=== PATIENT | female | born 1960 | race Caucasian/White ===

== ENCOUNTER 2017-02-08 15:33 | Emergency (ER) | payer OTHER ==
[2017-02-08 17:31] VITALS: BP 113/64
--- NOTE | 2017-02-08 18:21 | UC ---
Back Pain HPI - HPI Summary HPI Summary: Pt presents with c/o of low back pain that is chronic and has been exacerbated with a recent trip that caused her to "jar" her low back. She reports that the pain/numbness/heaviness radiates from right buttock to right knee. Denies saddle parasthesia right upper thigh, incontinence or worsening of condition from onset. - History of Current Complaint Chief Complaint: UCTrauma Stated Complaint: LEG HEAVINESS AND NUMBNESS Time Seen by Provider: 02/08/17 18:07 Hx Obtained From: Patient ?: No Onset/Duration: Gradual Onset, Lasting Days Timing: Intermittent, Lasting Minutes Severity Initially: Mild Severity Currently: Mild Back Pain: Is Discrete @ - right lower back, Radiates To - right upper thigh Character: Dull, Aching Alleviating: Rest, Position Associated Signs And Symptoms: Positive: Weakness - Risk Factors Cauda Equina Risk Factors: Negative - Allergies/Home Medications Allergies/Adverse Reactions: Allergies Allergy/AdvReac Type Severity Reaction Status Date / Time No Known Allergies Allergy Verified 02/08/17 17:11 Home Medications: Home Medications Aspirin [Aspirin Adult Low Strengt] 81 mg PO 02/08/17 [History] PMH/Surg Hx/FS Hx/Imm Hx Previously Healthy: Yes Endocrine History Of: Denies: Diabetes Cardiovascular History Of: Reports: Cardiac Disorders Denies: Hypertension GI/ History Of: Denies: Renal Disease Cancer History Of: Denies: Breast Cancer - Surgical History Surgical History: Yes Surgery Procedure, Year, and Place: right wrist - 2014, right knee ACL repair - 2013 - Family History Known Family History: Positive: Other - positive [facility] for myalgia - Social History Alcohol Use: Rare Substance Use Type: None Smoking Status (MU): Never Smoked Tobacco Review of Systems Constitutional: Negative Skin: Negative Eyes: Negative ENT: Negative Respiratory: Negative Cardiovascular: Negative Gastrointestinal: Negative Genitourinary: Negative Motor: Negative Neurovascular: Other - weakness right upper thigh Musculoskeletal: Myalgia Neurological: Negative Psychological: Negative All Other Systems Reviewed And Are Negative: Yes Physical Exam Triage Information Reviewed: Yes Appearance: Well-Appearing Vital Signs: Initial Vital Signs Temp 97.9 F 02/08/17 17:14 Pulse 67 02/08/17 17:14 Resp 18 02/08/17 17:14 BP 113/64 02/08/17 17:14 Pulse Ox 100 02/08/17 17:14 Vital Signs Reviewed: Yes Eye Exam: Normal Neck exam: Normal Respiratory Exam: Normal Cardiovascular Exam: Normal Musculoskeletal Exam: Normal Musculoskeletal: Positive: Strength Intact - right lower extremity, ROM Intact - right lower extremity Neurological Exam: Normal Psychological Exam: Normal Skin Exam: Normal Back Pain Course/Dx - Differential Dx/Diagnosis Differential Diagnosis/HQI/PQRI: Strain, Other - sciatica low back strain Provider Diagnoses: low back strain Discharge - Discharge Plan Condition: Stable Disposition: HOME Patient Education Materials: Low Back Strain (ED), Lower Back Exercises (ED) Referrals: Frank Cobos MD [Primary Care Provider] - If Needed (Please follow up with your PCP or return to clinic as needed. )
== END 2017-02-08 18:30 | disposition home or self-care (01) ==
LOC: UCEAST 15:33
DX: S39.012A Strain of muscle, fascia and tendon of lower back, initial encounter (principal); X58.XXXA Exposure to other specified factors, initial encounter; Y93.89 Activity, other specified; Y92.9 Unspecified place or not applicable
CPT/HCPCS: 99211; G0463